=== PATIENT | female | born 1995 | race Caucasian/White ===

== ENCOUNTER 2017-08-20 16:32 | Inpatient (IN) ==
[2017-08-20] MEDS ORDERED: CALCIUM CARBONATE Chewable 500mg TABLET PO PRN (16:52)
[2017-08-20] MEDS ORDERED: DINOPROSTONE 10 MG VAGINAL INSERT VG ONE (16:52)
[2017-08-20] MEDS ORDERED: LIDOCAINE 1% (10mg/ml) 2mL INJ PF SDV ID PRN (16:52)
[2017-08-20] MEDS ORDERED: CARBOPROST 250 MCG/ML INJECTION IM PRN (16:52)
[2017-08-20] MEDS ORDERED: METHYLERGONOVINE 0.2 MG/ML INJECTION IM PRN (16:52)
[2017-08-20] MEDS ORDERED: TERBUTALINE 1 MG/ML VIAL SQ PRN (16:52)
[2017-08-20] MEDS ORDERED: MAG-AL + SIM ORAL LIQUID 30ml PO PRN (16:52)
[2017-08-20] MEDS ORDERED: ACETAMINOPHEN 500 MG TABLET PO PRN (16:52)
[2017-08-20] MEDS ORDERED: SALINE FLUSH 10ml SYRINGE IV PRN (16:52)
[2017-08-20 17:06] VITALS: BMI 33.0
[2017-08-21] MEDS: NALBUPHINE 10 MG/ML INJECTION IVP PRN ×3 (00:30→03:13)
[2017-08-21] MEDS: D5LR 1,000 ML IV PRN ×2 (06:00→17:00)
[2017-08-21] MEDS: LR 1,000 ML IV PRN ×3 (06:00→22:14)
[2017-08-21] MEDS ORDERED: OXYTOCIN DRIP 30 UNIT/500 ML ML IV PRN (06:30)
[2017-08-21] MEDS ORDERED: ROPIVACAINE 1% 10MG/ML INJ 200 MG, SUFentanil 50 MCG in NS 100 ML EPI PRN (08:10)
[2017-08-21] MEDS ORDERED: NALOXONE 0.4 MG/ML INJECTION IVP PRN (08:10)
[2017-08-21] MEDS ORDERED: ONDANSETRON 4 MG/2 ML INJECTION IVP PRN ×2 (08:10→22:47)
[2017-08-21] MEDS ORDERED: DiphenhydrAMINE 50 MG/ML INJECTION IVP PRN ×2 (08:10→22:47)
--- NOTE | 2017-08-21 08:10 | Anesthesia Preoperative Report ---
Anesthesia Epidural/Spinal Rec - Date and Time Date: 08/21/17 Preoperative Diagnosis: Term Induction Procedure: Labor Epidural Plan: Epidural - Vital Signs Vital Signs: Respiratory Rate 18 08/21/17 03:13 /Para: P:0 - Medictaions & Allergies Inpatient Medications: Current Medications Acetaminophen (Tylenol) 500 - 1,000 mg PO Q4H PRN PRN Reason: Pain Al Hydroxide/Mg Hydroxide (Maalox Plus) 30 ml PO Q3H PRN PRN Reason: Indigestion Calcium Carbonate (Tums) 500 - 1,000 mg PO Q2H PRN PRN Reason: Indigestion Carboprost Tromethamine (Hemabate) 250 mcg IM O PRN PRN Reason: .Downtime Diphenhydramine HCl (Benadryl) 50 mg PO HS PRN PRN Reason: Sleep Last Admin: 08/20/17 21:51 Dose: 50 mg Lactated Ringer's (Lactated Ringers) 1,000 mls @ 999 mls/hr IV .Q1H1M PRN Last Admin: 08/21/17 06:00 Dose: 999 mls/hr Dextrose/Lactated Ringer's (Dextrose 5%-Lactated Ringers) 1,000 mls @ 125 mls/ hr IV .Q8H PRN PRN Reason: Labor Last Admin: 08/21/17 06:00 Dose: 125 mls/hr Oxytocin (Pitocin Drip) 30 unit in 500 mls @ 2 mls/hr IV .Q24H PRN; Protocol PRN Reason: Induction/Augmentation Last Admin: 08/21/17 06:00 Dose: 2 mls/hr Lidocaine HCl (Xylocaine-Mpf 1% Vial) 0.2 mg ID O PRN PRN Reason: IV Start Methylergonovine Maleate (Methergine) 0.2 mg IM O PRN Misoprostol (Cytotec) 800 mcg VA ONCE PRN Nalbuphine HCl (Nubain) 5 mg IVP PRN PRN Last Admin: 08/21/17 03:13 Dose: 5 mg Sodium Chloride (Iv Flush) 10 - 80 ml IV PRN PRN PRN Reason: Flushing Terbutaline Sulfate (Brethine) 0.25 mg SQ PRN PRN Allergies/Adverse Reactions: Allergies Allergy/AdvReac Type Severity Reaction Status Date / Time Penicillins Allergy Intermediate Rash Verified 06/29/17 06:32 - Home Medications Home Medications: Home Medications Medication Instructions Recorded Confirmed Type Cyclobenzaprine [Flexeril] 10 mg PO BID PRN #30 tab 06/29/17 Rx Desmopressin [Ddavp] 1 puff AEROSOL BID 06/29/17 06/29/17 History Levothyroxine Sodium 25 mcg PO DAILY 06/29/17 06/29/17 History Vit No.124/Iron/Folic 1 each PO DAILY 06/29/17 06/29/17 History [ Vitamin Tablet] Sertraline HCl [Zoloft] 50 mg PO DAILY 06/29/17 06/29/17 History Buspirone 10 mg PO BID 08/18/17 08/20/17 History Potassium 10 meq PO DAILY 08/18/17 08/20/17 History - Medical History Respiratory: DENIES: Asthma, Bronchitis, Chronic Obstructive Pulmonary Disease (COPD), Dyspnea, Orthopnea, Pulmonary Embolism, Pneumonia, Upper Respiratory Infection, Pulmonary Edema, Sleep Apnea, Tuberculosis, Other Cardiovascular: DENIES: Abnormal EKG, Angina, Arrhythmia, Congestive Heart Failure, Coronary Artery Disease, Heart Murmur, Hypertension, Hypotension, High Cholesterol, Myocardial Infarction, Rheumatic Fever, Valvular Heart Disease, Other Gastrointestional: DENIES: Obstructive Bowel, Hepatitis, Cirrhosis, Nausea or Vomiting Present, Gastroesophageal Reflux Disease, Gastrointestinal Bleeding, Hiatal Hernia, Ulcer , Morbid Obesity, Other Neuro/Musculoskeletal: Reports: Depression (takes Buspirone) Denies: Back Problems, Cerebrovascular Accident, Headaches, Loss of Consciousness, Muscle Weakness, Neuromuscular Disorder, Paralysis, Paresthesia, Syncope, Seizures, Other Renal/Endocrine: Reports: Diabetes Mellitus Type 1 (Diabetes Insipidis) Other History: Reports: Now (ANGELO: September [id number]) - Surgical History HEENT Surgeries: Reports: Tonsillectomy (Tonsils and adenoids) Anesthesia Reactions: None Hx Family Anesthesia Reaction: No History of Motion Sickness: No - Social History Smoking Status: Never smoker Second Hand Exposure: No Substance Use Type: does not use Alcohol Intake Frequency: does not drink Hx Chewing Tobacco Use: No - Pertinent Findings Lab Data: CBC and BMP 08/20/17 17:34 08/20/17 17:32 BMP 08/20/17 17:32 Sodium 137 Potassium 3.6 Chloride 108 H Carbon Dioxide 19 L BUN 6.0 L Creatinine 0.6 L Glucose 123 H Calcium 9.3 Liver Function 08/20/17 Range/Units 17:32 Total Bilirubin 0.30 (0.20-1.30) MG/DL AST 28 (14-36) U/L ALT 11 (1-35) U/L Alkaline Phosphatase 199 H (38-126) U/L Albumin 3.1 L (3.5-5.0) g/dL - Physical Exam Respiratory Exam: lungs clear, bilateral breath sounds equal Cardiovascular Exam: regular rate and rhythm, no murmur - Airway Assessment Mallampati Score: I TMD: 3 Fingerbreadths Neck Extension: good Overall Assessment: no airway concerns - ASA ASA Score: 2 - Discussion Discussion: Discussed risks/options/alternatives of anesthesia and questions answered. Patient consents. Nursing pain assessment noted. Anesthesia Discussion: spouse, family member Attestation Statement: Prior to the delivery of any anesthetic medication, I examined the patient, developed the plan, obtained the patient's consent and discussed the risk and benefits of the procedure with the patient/guardian.
[2017-08-21] MEDS ORDERED: DiphenhydrAMINE 50 MG/ML INJECTION IVP ONE (20:07)
[2017-08-21] MEDS ORDERED: CEFAZOLIN PREMIX (MC ONLY) 2 GM/50 ML BAG IV ONE (21:03)
[2017-08-21] MEDS ORDERED: CITRIC ACID/SODIUM CITRATE 30ml PO ONE (21:03)
[2017-08-21] MEDS ORDERED: FAMOTIDINE PB 20 MG/50 ML BAG IV ONE (21:03)
[2017-08-21] MEDS ORDERED: TRANEXAMIC ACID 1,000 MG in NS 100 ML IV ONE (21:06)
[2017-08-21] MEDS ORDERED: LIDOCAINE 2% (100mg/5mL) 5ml PF SDV ONE (21:27)
[2017-08-21] MEDS ORDERED: PHENYLEPHRINE INJ 10 MG/ML VIAL IV ONE (21:46)
[2017-08-21] MEDS ORDERED: MIDAZOLAM 2mg/2ml INJECTION ONE (21:54)
[2017-08-21] MEDS ORDERED: FentaNYL 250 MCG/5 ML INJECTION ONE (21:57)
[2017-08-21] MEDS ORDERED: OXYTOCIN BOLUS BAG 30 UNIT/500 ML ML IV SCH (22:00)
[2017-08-21] MEDS ORDERED: ONDANSETRON 4 MG/2 ML INJECTION ONE (22:01)
[2017-08-21] MEDS ORDERED: MORPHINE SULFATE PF 5mg/10ml INJ (Duramorph) ONE (22:08)
[2017-08-21] MEDS ORDERED: NALBUPHINE 10 MG/ML INJECTION IVP PRN (22:47)
[2017-08-21] MEDS ORDERED: NALOXONE 2 MG/2 ML INJECTION PFS IVP PRN (22:47)
[2017-08-21] MEDS ORDERED: HYDROCORTISONE 2.5% CREAM 30gm RECTALLY PRN (23:04)
[2017-08-21] MEDS ORDERED: D5LR 1,000 ML IV SCH (23:04)
[2017-08-21] MEDS ORDERED: SIMETHICONE 80 MG CHEWABLE TABLET PO PRN (23:04)
[2017-08-21] MEDS ORDERED: ACETAMINOPHEN 500 MG TABLET PO PRN (23:04)
[2017-08-21] MEDS ORDERED: OXYTOCIN DRIP 30 UNIT/500 ML ML IV SCH (23:04)
[2017-08-21] MEDS ORDERED: CALCIUM CARBONATE Chewable 500mg TABLET PO PRN (23:04)
[2017-08-21] MEDS: IBUPROFEN 800 MG TABLET PO PRN (23:07)
[2017-08-22] MEDS: HYDROCODONE/APAP 5mg/325mg TABLET PO PRN ×4 (01:28→14:09)
[2017-08-22] MEDS: DiphenhydrAMINE 25 MG CAPSULE PO PRN ×2 (01:29→04:26)
--- NOTE | 2017-08-22 08:08 | OB/GYN Progress Note ---
OB-PP Progress Note - General PPD1 POD:: POD1 Maternal Group B Strep: Negative Maternal blood type: A+ Maternal Rubella Status: Immune - Subjective Date: 08/22/17 Lochia: Minimal Pain: controlled Voiding: beckham still in place Voiding: urine blood tinged Nausea or Vomiting Present: No - Objective Vital Signs: Last Vital Signs Temp 99.7 F 08/22/17 02:00 Pulse 98 08/22/17 02:00 Resp 18 08/22/17 02:28 BP 130/70 08/22/17 02:00 Pulse Ox 98 08/22/17 02:00 Urine Output: good General: alert and oriented Incision: dry, dressed Side: bilateral Edema Degree: 4+ Laboratory: Laboratory Results - last 24 hr 08/21/17 08/22/17 22:05 06:04 WBC 19.1 H D RBC 3.27 L Hgb 7.8 L D Hct 25.3 L D MCV 77.4 L MCH 23.9 L MCHC 30.8 L RDW Std Deviation 37.7 Plt Count 227 MPV 10.3 Cord ABG pH 7.253 Cord ABG pCO2 47.1 Cord ABG pO2 12.5 Cord ABG HCO3 20.8 Cord ABG Total CO2 22.2 Cord ABG Base Excess -6.6 Cord ABG O2 Sat 10.9 - Assessment Assessment: SP, Primary C/S - Plan Plan: routine care Will recheck CBC, CMP in a.m. Restart Zoloft and buspirone. Q&A
--- NOTE | 2017-08-22 08:21 | Anesthesia Postoperative Note ---
- Date and Time Date: 08/22/17 Time: 08:15 - Status Patient Participated in Evaluation: Patient Participated in Person Vital Signs: Temperature 99.7 F 08/22/17 02:00 Pulse Rate 98 08/22/17 02:00 Respiratory Rate 18 08/22/17 02:28 Blood Pressure 130/70 08/22/17 02:00 Pulse Oximetry 98 08/22/17 02:00 Respiratory Function: Airway Patent, Regular Respirations Cardiovascular Function: Regular Pulse Mental Status: Alert and Oriented Pain Intensity: 8 (abdomen sore after ) Hydration: Taking PO Fluids Complications During Recover: None Apparent Post Anesthesia Care Notes: ambulating without problems - Follow-Up Instructions Instructions: Per Surgeon
[2017-08-22] MEDS: IBUPROFEN 800 MG TABLET PO PRN ×2 (08:42→16:11)
[2017-08-22] MEDS: DOCUSATE CALCIUM 240 MG CAPSULE PO SCH (12:03)
[2017-08-22] MEDS: SIMETHICONE 80 MG CHEWABLE TABLET PO SCH ×3 (12:03→19:45)
[2017-08-22] MEDS: SERTRALINE 50 MG TABLET PO SCH (12:04)
--- NOTE | 2017-08-22 12:25 | Operative Note ---
DATE OF OPERATION 08/21/2017 PREOPERATIVE DIAGNOSES 1. Term . 2. Preeclampsia with proteinuria and mild features. 3. Diabetes insipidus. 4. Failure to progress. POSTOPERATIVE DIAGNOSES 1. Term . 2. Preeclampsia with proteinuria and mild features. 3. Diabetes insipidus. 4. Failure to progress. PROCEDURE Primary low transverse section. SURGEON Veda Samuel MD [employer]TER Nicholas Bernal, Tube Skiver ANESTHESIA Continuous epidural CARBURETOR REBUILDER Godwin Lujan, ANAMIKA EBL 700 mL DESCRIPTION OF PROCEDURE Ms. Ernandez was brought to the OR and placed on the OR table in the supine position with left lateral displacement epidural analgesia levels were raised to adequate surgical levels. A Klein catheter previously had been placed to dependent drain. The abdomen was prepped and draped in the usual sterile fashion. A Pfannenstiel skin incision was made with a sharp knife. This was carried down to fascia. Fascia was incised transversely. Fascia was tented up. This was bluntly and sharply dissected free of rectus muscles. Rectus muscles were bluntly divided. The peritoneum was tented up and sharply entered. This was then extended vertically. The bladder blade was inserted. The bladder was noted to be well below our area of operation. I made a low transverse uterine incision. There was clear amniotic fluid. The baby was fairly wedged down in the pelvis in the left occiput posterior position. There was a loop of umbilical cord looping down in between the baby and the anterior abdomen. After a short time of elevating the head, the baby was delivered with very little incident. This really was a fairly short time frame. Baby was bulb suctioned on the abdomen. Cord was doubly clamped and cut and the baby was given to Dr. Bourgeois and his team. It was immediately evident the baby was quite limp. This is a liveborn male with Apgars of 1/6/7. I am at a loss to explain the difficulty the baby has had in breathing. I am not sure of a surgical reason for that. Please see Dr. Bourgeois's notes. The placenta was then expressed intact. It had a normal configuration, normal-appearing three-vessel cord. It was sent to the pathology lab for evaluation. The uterus was exteriorized and the myometrium swept clear of membranes. The myometrial incision was reapproximated with a running locking 0 Monocryl. There were bilateral extensions of about a centimeter. These were included in the closure. We inspected carefully for hemostasis. It was under good control. Uterus, tubes and ovaries were noted to be grossly normal and were returned to the abdominal cavity. We reinspected for hemostasis and this remained good. We then reapproximated the peritoneum with a running nonlocking 2-0 Vicryl. Fascia was reapproximated with a running nonlocking 0 Vicryl. Bryan's was reapproximated with a running nonlocking 3-0 chromic. Skin edges were reapproximated with subcuticular style 3-0 undyed Vicryl. The wound was dressed with Steri-Strips and sterile dressing. Counts were correct postoperatively x2. The patient's urine was bloody before even going into surgery and remained so throughout the procedure. Output was adequate and free- flowing. Ms. Ernandez was then transferred to recovery in stable condition where she is now. Baby is in special care nursery. [facility]
[2017-08-22] MEDS: BUSPIRONE 10 MG TABLET PO SCH ×2 (13:15→21:05)
[2017-08-22] MEDS: DESMOPRESSIN 0.01% NS SCH ×3 (16:07→22:13)
[2017-08-22] MEDS: Oxycodone/Acetaminophen 5/325 1 TAB PO PRN ×2 (18:07→22:13)
[2017-08-23] MEDS: IBUPROFEN 800 MG TABLET PO PRN ×3 (00:29→17:48)
[2017-08-23] MEDS: SIMETHICONE 80 MG CHEWABLE TABLET PO SCH ×5 (00:38→21:22)
[2017-08-23] MEDS: Oxycodone/Acetaminophen 5/325 1 TAB PO PRN ×5 (04:10→21:49)
--- NOTE | 2017-08-23 08:15 | OB/GYN Progress Note ---
OB-PP Progress Note - General PPD2 POD:: POD2 Maternal Group B Strep: Negative Maternal blood type: A+ Maternal Rubella Status: Immune - Subjective Date: 08/23/17 Lochia: Minimal Pain: controlled Voiding: voiding Nausea or Vomiting Present: No - Objective Vital Signs: Last Vital Signs Temp 98.5 F 08/23/17 07:00 Pulse 74 08/23/17 07:00 Resp 20 08/23/17 07:00 BP 125/72 08/23/17 07:00 Pulse Ox 100 08/23/17 07:00 Urine Output: good General: alert and oriented Abdomen: fundus firm, non-tender Incision: normal, no erythema, intact Extremities: non-tender Side: bilateral Site: leg, ankle, foot Edema Degree: 3+ Laboratory: Laboratory Results - last 24 hr 08/22/17 14:44 Hgb 8.2 L - Assessment Assessment: SP, Primary C/S - Plan Plan: routine care, iron Expected date of discharge: 08/24/17
[2017-08-23] MEDS: DOCUSATE CALCIUM 240 MG CAPSULE PO SCH (08:32)
[2017-08-23] MEDS: BUSPIRONE 10 MG TABLET PO SCH (08:34)
[2017-08-23] MEDS ORDERED: LIDOCAINE 2%/EPI 1:200,000 20ml SDV PF ONE (12:10)
[2017-08-23] MEDS: FERROUS SULFATE 324 MG TABLET PO SCH (17:48)
[2017-08-23] MEDS: SERTRALINE 50 MG TABLET PO SCH (17:48)
[2017-08-24] MEDS: Oxycodone/Acetaminophen 5/325 1 TAB PO PRN ×2 (07:07→13:21)
[2017-08-24] MEDS: IBUPROFEN 800 MG TABLET PO PRN ×2 (07:07→16:50)
--- NOTE | 2017-08-24 08:03 | OB/GYN Progress Note ---
OB-PP Progress Note - General POD:: POD3 Maternal Group B Strep: Negative Maternal blood type: A+ Maternal Rubella Status: Immune - Subjective Date: 08/24/17 Lochia: Minimal - Objective Vital Signs: Last Vital Signs Temp 98.3 F 08/23/17 21:17 Pulse 71 08/23/17 21:17 Resp 14 08/23/17 21:17 BP 131/78 08/23/17 21:17 Pulse Ox 100 08/23/17 21:17 Urine Output: good General: sleeping Laboratory: Laboratory Results - last 24 hr 08/23/17 08/23/17 09:57 09:57 WBC 13.4 H RBC 2.92 L Hgb 7.0 L D Hct 22.5 L D MCV 77.1 L MCH 24.0 L MCHC 31.1 RDW Std Deviation 37.0 Plt Count 250 MPV 9.6 Immature Gran % (Auto) 0.9 H Neut % (Auto) 66.4 H Lymph % (Auto) 21.4 L [place] % (Auto) 8.7 Eos % (Auto) 2.5 Baso % (Auto) 0.1 Neut # (Auto) 8.9 H Lymph # (Auto) 2.9 [place] # (Auto) 1.2 H Eos # (Auto) 0.3 Baso # (Auto) 0.0 Abs Immat Gran (auto) 0.12 H Turbidity < 20 Sodium 134 Potassium 3.2 L Chloride 104 Carbon Dioxide 24 Anion Gap 6 BUN 9.0 D Creatinine 0.6 L GFR Calculation 126 BUN/Creatinine Ratio 15 Glucose 109 Calculated Osmolality 258 L Calcium 8.0 L D Total Bilirubin 0.30 Conjugated Bilirubin 0.00 Unconjugated Bilirubin 0.00 Icterus Index < 2 AST 23 ALT 8 Alkaline Phosphatase 117 D Total Protein 4.5 L Albumin 2.3 L Globulin 2.2 L Albumin/Globulin Ratio 1.0 L Specimen Hemolysis < 15 - Assessment Assessment: Primary C/S - Plan Plan: discharge home (Patient sleeping. Plan for dism to board. baby in intermediate. )
[2017-08-24 08:23] VITALS: TEMP 98.9; O2SAT 98
[2017-08-24] MEDS: FERROUS SULFATE 324 MG TABLET PO SCH (10:11)
[2017-08-24] MEDS: DOCUSATE CALCIUM 240 MG CAPSULE PO SCH (10:11)
[2017-08-24] MEDS: BUSPIRONE 10 MG TABLET PO SCH (10:11)
[2017-08-24] MEDS: SERTRALINE 50 MG TABLET PO SCH (10:11)
[2017-08-24] MEDS: DESMOPRESSIN 0.01% NS SCH (10:23)
[2017-08-24] MEDS: SIMETHICONE 80 MG CHEWABLE TABLET PO SCH ×2 (10:23→13:21)
[2017-08-24 11:49] VITALS: BP 136/87; PULSE 67; RESP 14
== END 2017-08-24 19:10 | disposition home or self-care (01) | DRG 765 ==
LOC: MC 16:42
PROVIDERS: ADMIT Obstetrics & Gynecology; ATTEND Obstetrics & Gynecology